=== PATIENT | female | born 1940 | race Caucasian/White ===

== ENCOUNTER 2021-02-25 15:50 | Emergency (ER) | payer OTHER ==
[~2021-02-25 15:50] MED LIST: PROPRANOLOL HCL10 MG PO; SYNTHROID25 MCG PO
== END 2021-02-25 18:15 | disposition home or self-care (01) ==
LOC: FER 15:50
DX: H11.32 Conjunctival hemorrhage, left eye (principal); I10 Essential (primary) hypertension; Z79.899 Other long term (current) drug therapy; Z88.2 Allergy status to sulfonamides
CPT/HCPCS: 99282